=== PATIENT | male | born 1990 | race Two or more races ===

== ENCOUNTER 2019-04-11 10:55 | Emergency (ER) | payer OTHER ==
[~2019-04-11] VITALS: Ht 162.6 cm; Wt 56.7 kg
[2019-04-11 11:12] VITALS: BP 116/76
--- NOTE | 2019-04-11 11:14 | NUR ---
ED Nurse Note:pt. came with upper back pain due to shelf fell on him yesterday at work, skin is clean and intact on his back on arrival to ER
--- NOTE | 2019-04-11 11:50 | NUR ---
ER DISCHARGE NOTE: Patient is cleared to be discharged per ERMD, pt is aox4, on room air, with stable vital signs. pt was given dc and work miscomp instructions, pt was able to verbalize understanding, pt id band and iv site removed without complications. pt is able to ambulate with steady gait. pt took all belongings.
[2019-04-11 11:58] VITALS: BP 116/76
--- NOTE | 2019-04-13 18:26 | Emergency Room Report ---
History of Present Illness General Chief Complaint: Back Injury Source: Patient, Medical Record Present Illness HPI Patient presents with complaints of trauma to the upper back area reports that the day before arrival on the A shelf with clothing on it fell forward onto his back patient has pain to the bilateral upper back area between the shoulder blades Patient also reports that he was holding something and as this happened he was having pain to the thenar eminence Denies any pain to the dorsal wrist denies any chest pain or shortness of breath denies any lapse of consciousness denies any head injury Allergies: Coded Allergies: No Known Allergies (Unverified , 04/11/19) Patient History Past Medical History: see triage record Reviewed Nursing Documentation: PMH: Agreed; PSxH: Agreed Review of Systems All Other Systems: negative except mentioned in HPI Physical Exam Vital Signs Date Time Temp Pulse Resp B/P (MAP) Pulse Ox O2 Delivery O2 Flow Rate FiO2 04/11/19 11:03 98.2 53 18 116/76 (89) 97 Room Air Sp02 EP Interpretation: reviewed, normal General Appearance: well appearing, no apparent distress Head: normocephalic, atraumatic Eyes: bilateral eye PERRL, bilateral eye EOMI ENT: hearing grossly normal, normal pharynx Neck: full range of motion, supple Respiratory: lungs clear Cardiovascular #1: regular rate, rhythm Gastrointestinal: non tender, soft Musculoskeletal: other - Some discomfort palpable rhomboid region mid thoracic parathoracic on the right and left approximately T5-T6 region no obvious midline step-offs also discomfort to palpation of the right thenar eminence no obvious ecchymosis or bruising Neurologic: alert, oriented x3, responsive Skin: no rash, palpation normal Lymphatic: no adenopathy Medical Decision Making Diagnostic Impression: Primary Impression: Injury of back Additional Impression: hand contusion ER Course Patient appears to have suffered from acute contusion Differential diagnosis of acute fracture, soft tissue injury neurological injury entertained, patient otherwise has a fairly benign medical evaluation Is appropriate for close outpatient follow-up Last Vital Signs Date Time Temp Pulse Resp B/P (MAP) Pulse Ox O2 Delivery O2 Flow Rate FiO2 04/11/19 11:58 98.2 55 18 116/76 97 Room Air Status: improved Disposition: HOME, SELF-CARE Condition: Improved Referrals: NOT CHOSEN IPA/MD,REFERRING (PCP) Departure Forms: Return to Work Return to Work in (Days): 1 Return to Work Date: Apr 13, 2019 Patient Instructions: Contusion, [id number], Hand Contusion, [id number] Additional Instructions: Patient is provided with the discharge instructions notified to follow up with primary doctor in the next 2-3 days otherwise return to the er with any worsening symptoms. Please note that this report is being documented using DRAGON technology. This can lead to erroneous entry secondary to incorrect interpretation by the dictating instrument. Uday Perez DO Apr 13, 2019 18:26
== END 2019-04-11 11:50 | disposition home or self-care (01) ==
LOC: EMR 11:00
DX: S29.9XXA Unspecified injury of thorax, initial encounter (principal); S60.229A Contusion of unspecified hand, initial encounter; W20.8XXA Other cause of strike by thrown, projected or falling object, initial encounter; Y92.9 Unspecified place or not applicable
CPT/HCPCS: 99281